=== PATIENT | male | born 1935 | race Caucasian/White ===

== ENCOUNTER 2021-06-28 18:16 | Inpatient (IN) | payer MEDICARE, BC ==
[~2021-06-28] VITALS: Ht 180.3 cm; Wt 101.6 kg
[2021-06-28] MEDS ORDERED: FURO20TA90 (18:46)
[2021-06-28] MEDS ORDERED: HYDROCHLOROTHIAZIDE (18:46)
[2021-06-28] MEDS ORDERED: METOPROLOL (18:46)
--- NOTE | 2021-06-28 19:35 | NUR ---
Pt placed into room 3, currently bradycardic at 45bpm. Will continue to monitor pt
[2021-06-28 19:40] LABS: HEMATOCRIT 51.2 % (36.7-47.1); MEAN CORPUSCULAR HEMOGLOBIN 28.9 uug (23.8-33.4); MEAN CORPUSCULAR VOLUME 87.3 fL (73.0-96.2); PLATELET COUNT (AUTO) 151 K/uL (152-348)
--- NOTE | 2021-06-28 19:44 | NUR ---
EKG COMPLETED, HANDED TO DR. HARTMANN
[2021-06-28 19:48] LABS: CARBON DIOXIDE 30 mmol/L (21-32); CHLORIDE 100 mmol/L (98-107); CREATININE 1.6 mg/dL (0.6-1.3); GLUCOSE 136 mg/dL (74-106); POTASSIUM 4.2 mmol/L (3.5-5.1); UREA NITROGEN, BLOOD 27 mg/dL (7-18)
--- NOTE | 2021-06-28 19:48 | NUR ---
PT TO CT
[2021-06-28 20:00] LABS: ALANINE AMINOTRANSFERASE 30 U/L (16-63); ALKALINE PHOSPHATASE 61 U/L (50-136); ASPARTATE AMINOTRANSFERASE 24 U/L (15-37); BILIRUBIN,TOTAL 1.7 mg/dL (0.2-1.0)
--- NOTE | 2021-06-28 20:48 | NUR ---
Called [facility], spoke to Queenie who will paged hospitalist to call us. Waiting for call back.
[2021-06-28] MEDS ORDERED: DEXTROSE 50% 50 ML DISP.SYRIN IV ONE (21:00)
[2021-06-28] MEDS ORDERED: DEXTROSE 50% 50 ML DISP.SYRIN ONE (21:08)
--- NOTE | 2021-06-28 21:11 | NUR ---
Pt blood glucose of 179
[2021-06-28 22:10] LABS: *BILIRUBIN,URIN NEGATIVE (NEGATIVE); *BLOOD, URINE 2+ (NEGATIVE); *CLARITY,URINE CLEAR (CLEAR); *COLOR,URINE YELLOW (YELLOW); *KETONES,URINE TRACE (NEGATIVE); *UROBILINOGEN,URINE 0.2 E.U./dl (NORMAL); LEUKOCYTE ESTERASE ,URINE NEGATIVE (NEGATIVE); NITRITE, URINE NEGATIVE (NEGATIVE); PH,URINE 5.5 (5.0-8.0); UGLUCOSE NEGATIVE (NEGATIVE)
[2021-06-28 22:34] LABS: BACTERIA,URINE NONE SEEN /HPF (NONE SEEN); SQUAMOUS EPITHELIAL CELL,UR NONE SEEN /HPF (NONE SEEN); WBC,URINE 0-3 /HPF (0-3)
--- NOTE | 2021-06-28 22:34 | NUR ---
Assisted with placement of transcutaneous IJ pacemaker, settings: rate of 80 ppm, ouypuy of 1 mA, sensitivity of 3 mV
--- NOTE | 2021-06-28 22:40 | NUR ---
Called [facility] spoke to Gokul who states he is unable to accept patient due to capacity
--- NOTE | 2021-06-28 22:58 | NUR ---
[facility] with no beds available.
--- NOTE | 2021-06-28 23:09 | NUR ---
Dr Painting spoke Dr Sinha for cardioloy who accepted patient.
[2021-06-28] MEDS ORDERED: CEFTRIAXONE 1 G in IV DEXTROSE 5% 50 ML IV ONE (23:30)
[2021-06-28] MEDS ORDERED: VANCOMYCIN IV 1,000 MG in IV DEXTROSE 5% 250 ML IV ONE (23:45)
[2021-06-28] MEDS ORDERED: CEFTRIAXONE /D5W 50ML IVPB **ER PYXIS IV ONE (23:54)
[2021-06-29] VITALS (19 sets, daily range): BP systolic 121–166; BP diastolic 32–108
--- NOTE | 2021-06-29 00:16 | NUR ---
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
[2021-06-29] MEDS ORDERED: VANCOMYCIN IV 200 ML ONE (00:20)
[2021-06-29] MEDS ORDERED: IV NORMAL SALINE 500 ML BAG IV ONE (00:45)
--- NOTE | 2021-06-29 00:49 | NUR ---
Dr Painting spoke with Dr Real who accepted patient to CCU.
[2021-06-29] MEDS ORDERED: ONDANSETRON 4 MG/2 ML VIAL IV PRN (01:15)
[2021-06-29] MEDS ORDERED: MAGNESIUM HYDROXIDE 30 ML LIQUID UDC PO PRN (01:15)
[2021-06-29] MEDS ORDERED: Z GUARD REMEDY PASTE 57 GM TUBE TOP PRN (01:15)
--- NOTE | 2021-06-29 04:15 | NUR ---
reeived patient and report from charmaine , patient is awake orient x [address] confusion [address] and time , oriented to name and , room air , transvenous pacer right internal jugular , rate 100 , output of 1, sensitivity to of 3 , incontinent , no distress , no fever . hr 91 , bp of 125/97 , 97 % , temp of 98. 4 , rr 17
--- NOTE | 2021-06-29 04:15 | NUR ---
received patient with just glasses and pant
[2021-06-29] MEDS: IV D5 1/2 NS 1000 ML 1,000 ML IV PRN ×2 (04:28→07:14)
--- NOTE | 2021-06-29 04:30 | NUR ---
16 fr lawson inserted with one attempt, draining orange red urine
--- NOTE | 2021-06-29 06:44 | NUR ---
patient pulled his iv , pressure applied , awake , able to follow very simple command but with intermittent confusion , on room air , external pacer same settings intact with sutures , lawson draining with reddish orange output
--- NOTE | 2021-06-29 07:17 | NUR ---
dr olson is at bedside , talking to the patient , updates given
[2021-06-29] MEDS: PANTOPRAZOLE SODIUM 40 MG VIAL IV SCH (09:14)
--- NOTE | 2021-06-29 10:22 | NUR ---
Late entry: Notified by shoe caser that they were trying to find a higher level of care. Dr. Sinha contacted to see if that was still his plan. Dr. Sinha stated to that pacemaker will be done in our OR by Dr. Mullins in . NPO orders removed.
[2021-06-29] MEDS: VANCOMYCIN IV 1,500 MG in IV DEXTROSE 5% 500 ML IV SCH ×2 (15:00→17:00)
[2021-06-29] MEDS ORDERED: HYDR25TA4 PO (16:32)
[2021-06-29] MEDS ORDERED: FURO-152 PO (16:32)
[2021-06-29] MEDS ORDERED: ATEN50TA PO (16:33)
[2021-06-29] MEDS ORDERED: METO50TA16 PO (16:38)
--- NOTE | 2021-06-29 19:05 | NUR ---
Received patient in bed alert but a little confused. Patient is currently on transvenous pacing output 10, sensitivity 3, capturing nicely at a rate of 71. BP stable. Patient on room air SAT 96%, no SOB or signs of distress. Patient educated that he is not to make any large movements and he is to remain calm and still, patient needs reinforcing throughout the night. Family at bedside, informed of pacemaker implantation procedure tomorrow morning, family understands procedure and risks and consent signed by the . Patient to be placed NPO after midnight for procedure in the AM.
[2021-06-29] MEDS ORDERED: CEFTRIAXONE 1 G in IV DEXTROSE 5% 50 ML IV SCH (21:00)
[2021-06-30] VITALS (21 sets, daily range): BP systolic 72–170; BP diastolic 35–97
[2021-06-30] MEDS: IV D5 1/2 NS 1000 ML 1,000 ML IV PRN ×2 (02:56→21:46)
[2021-06-30 06:01] LABS: HEMATOCRIT 47.9 % (36.7-47.1); MEAN CORPUSCULAR HEMOGLOBIN 28.8 uug (23.8-33.4); MEAN CORPUSCULAR VOLUME 86.6 fL (73.0-96.2); PLATELET COUNT (AUTO) 123 K/uL (152-348)
[2021-06-30 06:02] LABS: CREATININE 1.2 mg/dL (0.6-1.3); MAGNESIUM 1.5 mg/dL (1.8-2.4); PHOSPHOROUS 3.1 mg/dL (2.5-4.9); POTASSIUM 3.3 mmol/L (3.5-5.1)
[2021-06-30 06:13] LABS: THYROID STIMULATING HORMONE 1.238 mIU/mL (0.358-3.740)
[2021-06-30] MEDS ORDERED: LIDOCAINE HCL 2% 20 ML VIAL ONE (06:39)
--- NOTE | 2021-06-30 06:40 | NUR ---
Patient taken down to OR, Dr. Kumar in the unit with surgical team. Report given. Patient remained stable throughout the night, Pacer capturing well, no need to increase output. BP stable, No SOB or signs of distress.
[2021-06-30] MEDS ORDERED: BUPIVACAINE PF 0.5% 30 ML VIAL ONE (06:46)
[2021-06-30] MEDS ORDERED: IOPAMIDOL 15 ML VIAL IT ONE (06:47)
[2021-06-30] MEDS ORDERED: CEFAZOLIN 1 G VIAL IM ONE (09:13)
[2021-06-30] MEDS ORDERED: LIDOCAINE-MPF 2% 5 ML VIAL IJ ONE (09:13)
[2021-06-30] MEDS ORDERED: PROPOFOL 200 MG/20 ML BOTTLE IV ONE (09:13)
[2021-06-30] MEDS ORDERED: POTASSIUM CHLORIDE 20 MEQ TAB.PRT.SR PO ONE (10:30)
--- NOTE | 2021-06-30 11:01 | NUR ---
WOUND CARE CONSULT: PT SEEN FOR DRY SCAB ON LEFT LOWER LEG, PRESENT ON ADMISSION. NO ERYTHEMA, DRAINAGE OR TENDERNESS NOTED. THERE IS SCARRING TO RT LOWER LEG AND DRY SCAB TO LEFT ANTERIOR THIGH WELL. PT DENIES NEED FOR FULL SKIN ASSESSMENT OF GROIN AND BUTTOCKS AT THIS TIME. PT JUST BACK FROM PROCEDURE. RECOMMENDATIONS MADE FOR SKIN PROTECTION. DISCUSSED WITH NURSING STAFF. PT AT BEDSIDE. MD IN AGREEMENT WITH PLAN OF CARE.
[2021-06-30] MEDS: PANTOPRAZOLE SODIUM 40 MG VIAL IV SCH (11:17)
[2021-06-30] MEDS: MAGNESIUM SULFATE/D5W 100 ML IV SCH ×2 (11:18→12:50)
[2021-06-30] MEDS: ACETAMINOPHEN 325 MG TABLET PO PRN (13:17)
[2021-06-30] MEDS ORDERED: POLYVINYL ALCOHOL OPHT DROPS 15 ML BOTTLE EACHEYE PRN ×2 (13:45→14:15)
[2021-06-30] MEDS ORDERED: ALBU8.5H8 INH (15:18)
[2021-06-30] MEDS: [UNRECOGNIZED DRUG - OTHER] INH SCH (16:00)
[2021-06-30] MEDS: ALBUTEROL INH SCH (16:00)
[2021-06-30] MEDS: CLOTRIMAZOLE 1% CREAM 30 GM TUBE TOP SCH ×2 (17:00→18:00)
--- NOTE | 2021-06-30 19:10 | NUR ---
received patient sleeping soundly , arousable to light touch and name on room air , d51/2 ns at 75 ml / hr , lawson with orange red color , pacer incsion on left chest , dressing intact . , no fever , HR 69
--- NOTE | 2021-06-30 19:10 | NUR ---
old transcutaneous pacer right jugular intact ,
[2021-07-01] VITALS (23 sets, daily range): BP systolic 123–162; BP diastolic 61–105
[2021-07-01 04:28] LABS: HEMATOCRIT 40.8 % (36.7-47.1); MEAN CORPUSCULAR HEMOGLOBIN 28.4 uug (23.8-33.4); MEAN CORPUSCULAR VOLUME 86.5 fL (73.0-96.2); PLATELET COUNT (AUTO) 112 K/uL (152-348)
[2021-07-01 04:50] LABS: CARBON DIOXIDE 29 mmol/L (21-32); CHLORIDE 103 mmol/L (98-107); CREATININE 1.4 mg/dL (0.6-1.3); GLUCOSE 118 mg/dL (74-106); POTASSIUM 3.6 mmol/L (3.5-5.1); UREA NITROGEN, BLOOD 19 mg/dL (7-18)
[2021-07-01] MEDS: PANTOPRAZOLE SODIUM 40 MG TABLET.DR PO SCH (06:36)
--- NOTE | 2021-07-01 07:15 | NUR ---
Received patient in bed, no distress noted. Alert and oriented x2-3 forgetful. Patient is on room air, bed in low position, side rails upx2.
--- NOTE | 2021-07-01 08:13 | NUR ---
Late entry: Discussed restarting of home medications and primarily lasix today. Patient is edematous and urine output is low. Dr. Sinha to follow up on rounding.
--- NOTE | 2021-07-01 08:20 | NUR ---
Dr. Kumar contacted this proposal lead writer to inform that it is okay to remove the dressing from new pacemaker site, open to air.
[2021-07-01] MEDS: [UNRECOGNIZED DRUG - OTHER] INH SCH (09:28)
[2021-07-01] MEDS: CLOTRIMAZOLE 1% CREAM 30 GM TUBE TOP SCH ×2 (09:28→17:00)
[2021-07-01] MEDS: ALBUTEROL INH SCH (09:28)
[2021-07-01] MEDS ORDERED: FUROSEMIDE 40 MG/4 ML VIAL IV ONE (09:45)
[2021-07-01] MEDS ORDERED: POTASSIUM CHLORIDE 20 MEQ POWDER PACKET PO ONE (11:00)
[2021-07-01] MEDS: METOPROLOL TARTRATE 25 MG TABLET PO SCH ×2 (11:10→21:27)
[2021-07-01] MEDS: FUROSEMIDE 40 MG/4 ML VIAL IV SCH (21:26)
[2021-07-02] VITALS (24 sets, daily range): BP systolic 115–168; BP diastolic 63–119
[2021-07-02 06:39] LABS: HEMATOCRIT 43.5 % (36.7-47.1); MEAN CORPUSCULAR HEMOGLOBIN 28.8 uug (23.8-33.4); MEAN CORPUSCULAR VOLUME 87.3 fL (73.0-96.2); PLATELET COUNT (AUTO) 125 K/uL (152-348)
[2021-07-02 06:53] LABS: CREATININE 1.2 mg/dL (0.6-1.3); PHOSPHOROUS 3.4 mg/dL (2.5-4.9); POTASSIUM 3.6 mmol/L (3.5-5.1)
[2021-07-02] MEDS ORDERED: POTASSIUM CHLORIDE 20 MEQ POWDER PACKET GT ONE (08:00)
[2021-07-02] MEDS: FUROSEMIDE 40 MG/4 ML VIAL IV SCH ×2 (08:06→21:35)
[2021-07-02] MEDS: METOPROLOL TARTRATE 25 MG TABLET PO SCH ×2 (08:06→21:36)
[2021-07-02] MEDS: PANTOPRAZOLE SODIUM 40 MG TABLET.DR PO SCH (08:06)
[2021-07-02] MEDS: [UNRECOGNIZED DRUG - OTHER] INH SCH (08:07)
[2021-07-02] MEDS: ALBUTEROL INH SCH (08:07)
[2021-07-02] MEDS: ACETAMINOPHEN 325 MG TABLET PO PRN (08:26)
[2021-07-02] MEDS: HYDROCODONE/APAP 5-325MG TABLET PO PRN (08:27)
[2021-07-02] MEDS: CLOTRIMAZOLE 1% CREAM 30 GM TUBE TOP SCH ×2 (09:39→18:37)
[2021-07-02] MEDS: APIXABAN 5 MG TABLET PO SCH ×2 (11:59→21:36)
[2021-07-02] MEDS: LOSARTAN POTASSIUM 50 MG TABLET PO SCH (11:59)
--- NOTE | 2021-07-02 12:30 | NUR ---
Patient and discussed plan of care and continued hospitalization. Patients prefers acute rehab.
[2021-07-02] MEDS: ENSURE ENLIVE (VAN) 240 ML LIQUID PO SCH (17:00)
--- NOTE | 2021-07-02 19:23 | NUR ---
Report given to shift commander nurse, patient in bed asleep, no distress noted at this time, lawson intact, bed in low position, side rails upx2.
[2021-07-03 00:01] VITALS: BP 159/110
[2021-07-03 04:00] VITALS: BP 143/81
[2021-07-03] MEDS: HYDROCODONE/APAP 5-325MG TABLET PO PRN (04:24)
[2021-07-03 05:06] LABS: HEMATOCRIT 43.8 % (36.7-47.1); MEAN CORPUSCULAR HEMOGLOBIN 28.3 uug (23.8-33.4); MEAN CORPUSCULAR VOLUME 86.6 fL (73.0-96.2); PLATELET COUNT (AUTO) 148 K/uL (152-348)
[2021-07-03 05:14] LABS: CARBON DIOXIDE 32 mmol/L (21-32); CHLORIDE 99 mmol/L (98-107); CREATININE 1.5 mg/dL (0.6-1.3); GLUCOSE 125 mg/dL (74-106); PHOSPHOROUS 3.5 mg/dL (2.5-4.9); POTASSIUM 3.9 mmol/L (3.5-5.1); UREA NITROGEN, BLOOD 26 mg/dL (7-18)
[2021-07-03] MEDS: PANTOPRAZOLE SODIUM 40 MG TABLET.DR PO SCH (06:26)
--- NOTE | 2021-07-03 09:30 | NUR ---
RECEIVED PATIENT BY BED TO ROOM 319 FROM CCU PLACED INTO BED FIXED AND MADE COMFORTABLE PATIENT IS ALERT AND VERBALLY RESPONSIVE DENIES PAIN OR DISCOMFORTS BOYD THIS TIME ON TELE SR WITH HEART BLOCK ORIENTED TO ROOM AND FLOOR PROTOCOL CALL LIGHTS AND PERSONAL BELONGINGS ARE WITHIN EASY REACH WILL CONTINUE TO OBSERVE.
[2021-07-03] MEDS: FUROSEMIDE 20 MG TABLET PO SCH (10:04)
[2021-07-03] MEDS: METOPROLOL TARTRATE 25 MG TABLET PO SCH ×2 (10:04→20:40)
[2021-07-03] MEDS: LOSARTAN POTASSIUM 50 MG TABLET PO SCH (10:05)
[2021-07-03] MEDS: ENSURE ENLIVE (VAN) 240 ML LIQUID PO SCH ×2 (10:10→18:34)
[2021-07-03 12:00] VITALS: BP 103/70
--- NOTE | 2021-07-03 12:04 | NUR ---
patient seen and examined by dr davidson with new orders and noted
[2021-07-03 16:00] VITALS: BP 140/69
[2021-07-03] MEDS: CLOTRIMAZOLE 1% CREAM 30 GM TUBE TOP SCH (17:00)
--- NOTE | 2021-07-03 17:00 | NUR ---
PATIENT SEEN AND EXAMINED BY JAYSON SWANN SMASH PIECER WITH ORDERS FOR ULTRA SOUND GUIDED THORACENTESIS AND BODY FLUID ANALYSIS
[2021-07-03 20:30] VITALS: BP 132/70
[2021-07-04] VITALS: BP 159/70
[2021-07-04 04:20] VITALS: BP 118/82
--- NOTE | 2021-07-04 05:22 | NUR ---
Pt slept well during the night. No issues noted. Pt forgetful at times, reorientation provided. F/C intact and patent. AM care done, no new skin breakdown noted. Pt able to turn and reposition independently in bed. Plan for possible US guided thoracentesis. All needs attended. Safety precautions maintained. Call light within reach. Continue plan of care.
[2021-07-04 06:34] LABS: HEMATOCRIT 42.5 % (36.7-47.1); MEAN CORPUSCULAR VOLUME 86.7 fL (73.0-96.2); PLATELET COUNT (AUTO) 164 K/uL (152-348)
[2021-07-04 06:49] LABS: CARBON DIOXIDE 31 mmol/L (21-32); CHLORIDE 100 mmol/L (98-107); CREATININE 1.4 mg/dL (0.6-1.3); GLUCOSE 107 mg/dL (74-106); POTASSIUM 3.9 mmol/L (3.5-5.1); UREA NITROGEN, BLOOD 32 mg/dL (7-18)
[2021-07-04] MEDS: PANTOPRAZOLE SODIUM 40 MG TABLET.DR PO SCH (07:00)
--- NOTE | 2021-07-04 08:00 | NUR ---
awake, alert/oriented x3, denies of pain, tele Vpaced , explained plan fo care- verbalized understanding, needs attended, safety measures maintained, call light within reach, lawson cath draining light yellow urine
[2021-07-04] MEDS: ENSURE ENLIVE (VAN) 240 ML LIQUID PO SCH ×2 (09:23→17:49)
[2021-07-04] MEDS: FUROSEMIDE 20 MG TABLET PO SCH (09:25)
[2021-07-04] MEDS: ALBUTEROL INH SCH (09:26)
[2021-07-04] MEDS: [UNRECOGNIZED DRUG - OTHER] INH SCH (09:26)
[2021-07-04] MEDS: CLOTRIMAZOLE 1% CREAM 30 GM TUBE TOP SCH ×2 (09:27→17:50)
[2021-07-04] MEDS: METOPROLOL TARTRATE 25 MG TABLET PO SCH (09:27)
[2021-07-04] MEDS: LOSARTAN POTASSIUM 50 MG TABLET PO SCH (09:28)
--- NOTE | 2021-07-04 10:00 | NUR ---
us guided thoracentesis will be done at 1400- pt informed
[2021-07-04 11:58] VITALS: BP 147/67
--- NOTE | 2021-07-04 15:00 | NUR ---
right thoracentesis done at bedside- obtained 750ml bloody pleural fluuid- tolerated well- will continue to monitor- cxr post thoracentesis obtained- no pneumothorax
[2021-07-04] MEDS: ACETAMINOPHEN 325 MG TABLET PO PRN (15:49)
[2021-07-04 16:00] VITALS: BP 112/67
--- NOTE | 2021-07-04 18:47 | NUR ---
pt d/cd as tele -to be admitted in ARU, pt in no distress, all needs attended and met
[2021-07-04] MEDS ORDERED: FURO-152 PO ×2 (21:50)
[2021-07-04] MEDS ORDERED: LACT-51 PO (21:50)
[2021-07-04] MEDS ORDERED: POLY15DR27 EACHEYE (21:50)
[2021-07-04] MEDS ORDERED: CLOT12CR TP (21:50)
[2021-07-04] MEDS ORDERED: ACET-2154 PO (21:50)
[2021-07-04] MEDS ORDERED: MAGN400O6 PO (21:50)
[2021-07-04] MEDS ORDERED: HYDR-3972 PO (21:50)
[2021-07-04] MEDS ORDERED: APIX5TAB PO (21:50)
[2021-07-04] MEDS ORDERED: ONDA4VIA23 IJ (21:50)
[2021-07-04] MEDS ORDERED: PANT40TA2 PO (21:50)
[2021-07-04] MEDS ORDERED: LOSA50TA39 PO (21:50)
== END 2021-07-04 19:15 | DRG 242 ==
LOC: ER 18:16 → CCU 06-29 02:00 → TELE3 07-03 09:00
PROVIDERS: ADMIT Student in an Organized Health Care Education/Training Program; ATTEND Nurse Practitioner Acute Care
DX: I44.2 Atrioventricular block, complete (principal); N17.0 Acute kidney failure with tubular necrosis; I50.31 Acute diastolic (congestive) heart failure; G91.2 (Idiopathic) normal pressure hydrocephalus; I13.0 Hypertensive heart and chronic kidney disease with heart failure and stage 1 through stage 4 chronic kidney disease, or unspecified chronic kidney disease; R00.1 Bradycardia, unspecified; I48.0 Paroxysmal atrial fibrillation; E11.22 Type 2 diabetes mellitus with diabetic chronic kidney disease; N18.9 Chronic kidney disease, unspecified; E66.9 Obesity, unspecified; I25.10 Atherosclerotic heart disease of native coronary artery without angina pectoris; T50.1X5A Adverse effect of loop [high-ceiling] diuretics, initial encounter; T50.2X5A Adverse effect of carbonic-anhydrase inhibitors, benzothiadiazides and other diuretics, initial encounter; Y92.009 Unspecified place in unspecified non-institutional (private) residence as the place of occurrence of the external cause; R09.02 Hypoxemia; Z87.442 Personal history of urinary calculi; Z91.81 History of falling; M62.81 Muscle weakness (generalized); R09.82 Postnasal drip; Z91.048 Other nonmedicinal substance allergy status; I35.0 Nonrheumatic aortic (valve) stenosis
CPT/HCPCS: 32555; 36415; 70030-TC; 70450; 71045; 71250; 76604; 82785; 83615; 83735; 83986; 84100; 84155; 84443; 85025; 85730; 86140; 87040; 87070; 87205; 88108-TC; 93005; 93307; 97161; A4649; A4663; C1898; C9113; G0378; J0690; J0696; J1940; J3370; J3475; J3490; J7040; J7060; Q9967

== ENCOUNTER 2021-07-04 20:18 | Inpatient (IN) | payer MEDICARE, BC ==
[~2021-07-04] VITALS: Ht 177.8 cm; Wt 99.8 kg
[~2021-07-04 20:18] MED LIST: ALBU8.5H8 INH; FURO-152 PO; HYDR25TA4 PO; METO50TA16 PO
[2021-07-04] MEDS ORDERED: Z GUARD REMEDY PASTE 57 GM TUBE TOP PRN (20:30)
[2021-07-04 20:35] VITALS: BP 122/62
[2021-07-04] MEDS ORDERED: POLY15DR27 EACHEYE (21:50)
[2021-07-04] MEDS ORDERED: ONDA4VIA23 IJ (21:50)
[2021-07-04] MEDS ORDERED: CLOT12CR TP (21:50)
[2021-07-04] MEDS ORDERED: MAGN400O6 PO (21:50)
[2021-07-04] MEDS ORDERED: APIX5TAB PO (21:50)
[2021-07-04] MEDS ORDERED: LOSA50TA39 PO (21:50)
[2021-07-04] MEDS ORDERED: FURO-152 PO ×2 (21:50)
[2021-07-04] MEDS ORDERED: ACET-2154 PO (21:50)
[2021-07-04] MEDS ORDERED: LACT-51 PO (21:50)
[2021-07-04] MEDS ORDERED: HYDR-3972 PO (21:50)
[2021-07-04] MEDS ORDERED: PANT40TA2 PO (21:50)
[2021-07-05 04:19] VITALS: BP 142/64
--- NOTE | 2021-07-05 05:06 | NUR ---
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 AAOX2-3 forgetful at times. Patient admitted to ARU. Lungs diminished. VSS. Pérez catheter intact draining yellow urine. I & O monitor. Kept comfortable. Left chest wall incision JTE. Hx of Afib, HTN, pleural effusion. Denies any pain nor any discomfort. Will monitor patient. No acute distress noted.
[2021-07-05 08:00] VITALS: BP 135/72
[2021-07-05] MEDS ORDERED: ONDANSETRON 4 MG/2 ML VIAL IV PRN (09:15)
[2021-07-05] MEDS ORDERED: HYDROCODONE/APAP 5-325MG TABLET PO PRN (09:15)
[2021-07-05] MEDS ORDERED: MAGNESIUM HYDROXIDE 30 ML LIQUID UDC PO PRN (09:15)
[2021-07-05] MEDS ORDERED: POLYVINYL ALCOHOL OPHT DROPS 15 ML BOTTLE EACHEYE PRN (09:15)
[2021-07-05] MEDS ORDERED: ACETAMINOPHEN 325 MG TABLET PO PRN (09:15)
[2021-07-05] MEDS: LOSARTAN POTASSIUM 50 MG TABLET PO SCH (11:40)
[2021-07-05] MEDS: PANTOPRAZOLE SODIUM 40 MG TABLET.DR PO SCH (11:40)
[2021-07-05] MEDS: FUROSEMIDE 20 MG TABLET PO SCH (11:41)
[2021-07-05] MEDS: APIXABAN 5 MG TABLET PO SCH ×2 (11:45→21:22)
[2021-07-05] MEDS: METOPROLOL SUCCINATE XL 50 MG TAB.SR.24H PO SCH (11:54)
[2021-07-05] MEDS: CLOTRIMAZOLE 1% CREAM 30 GM TUBE TP SCH ×2 (11:55→18:21)
[2021-07-05] MEDS: ENSURE ENLIVE (VAN) 240 ML LIQUID PO SCH ×2 (11:55→18:21)
--- NOTE | 2021-07-05 13:56 | NUR ---
INTERDISCIPLINARY TEAM CONFERENCE
[2021-07-05 16:02] VITALS: BP 146/64
[2021-07-05 20:00] VITALS: BP 141/69
[2021-07-06 04:00] VITALS: BP 140/80
[2021-07-06] MEDS: PANTOPRAZOLE SODIUM 40 MG TABLET.DR PO SCH (06:20)
[2021-07-06 06:30] LABS: HEMATOCRIT 42.5 % (36.7-47.1); MEAN CORPUSCULAR HEMOGLOBIN 28.6 uug (23.8-33.4); MEAN CORPUSCULAR VOLUME 86.4 fL (73.0-96.2); PLATELET COUNT (AUTO) 160 K/uL (152-348)
[2021-07-06 06:43] LABS: CARBON DIOXIDE 30 mmol/L (21-32); CHLORIDE 101 mmol/L (98-107); CREATININE 1.4 mg/dL (0.6-1.3); GLUCOSE 98 mg/dL (74-106); MAGNESIUM 2.2 mg/dL (1.8-2.4); PHOSPHOROUS 3.3 mg/dL (2.5-4.9); POTASSIUM 3.9 mmol/L (3.5-5.1); UREA NITROGEN, BLOOD 28 mg/dL (7-18)
--- NOTE | 2021-07-06 06:47 | NUR ---
Shift End Report: VS stable. Slept well. No significant event reported all night. Continue care as planne
[2021-07-06 07:47] VITALS: BP 156/83
[2021-07-06] MEDS: ENSURE ENLIVE (VAN) 240 ML LIQUID PO SCH ×2 (08:20→16:24)
[2021-07-06] MEDS: METOPROLOL SUCCINATE XL 50 MG TAB.SR.24H PO SCH (08:33)
[2021-07-06] MEDS: LOSARTAN POTASSIUM 50 MG TABLET PO SCH (08:34)
[2021-07-06] MEDS: FUROSEMIDE 20 MG TABLET PO SCH (08:34)
[2021-07-06] MEDS: APIXABAN 5 MG TABLET PO SCH (08:35)
[2021-07-06] MEDS: CLOTRIMAZOLE 1% CREAM 30 GM TUBE TP SCH ×2 (08:36→16:24)
[2021-07-06 15:43] VITALS: BP 142/70
--- NOTE | 2021-07-06 16:36 | NUR ---
REPORTED TO DR. ARCINIEGA, RN OFFICE, PATIENT HAS BLOODY URINE OUTPUT. ORDER TO HOLD ELIQUIS TONIGHT DOSE.
--- NOTE | 2021-07-06 18:41 | NUR ---
Per Dr Ramires, patient is for Spinal tap on Saturday/Saturday. Informed Dr Colby, order to kay Moya. Per Dr Colby, he will coordinate with the radiology and PT tomorrow. Kept patient patient comfortable during the shift. all needs attended. denies pain or discomfort. Kept call light within reach. safety measure maintained at all times. will continue to monitor.
[2021-07-06 21:00] VITALS: BP 138/60
[2021-07-07 04:00] VITALS: BP 157/60
[2021-07-07] MEDS: PANTOPRAZOLE SODIUM 40 MG TABLET.DR PO SCH (06:10)
--- NOTE | 2021-07-07 06:34 | NUR ---
The patient remained comfortable and no distress identified during the shift. denies pain or discomfort. Noted with clear-charanjit urine output. Minimal bloody color at the end of the shift identified. kept call light within reach. all due meds given as ordered. safety measures maintained. frequent checks done. all needs attended. will endorse to the next shift for continuity of care.
[2021-07-07 08:23] VITALS: BP 144/68
[2021-07-07] MEDS: METOPROLOL SUCCINATE XL 50 MG TAB.SR.24H PO SCH (10:25)
[2021-07-07] MEDS: ENSURE ENLIVE (VAN) 240 ML LIQUID PO SCH ×2 (10:25→17:06)
[2021-07-07] MEDS: FUROSEMIDE 20 MG TABLET PO SCH (10:25)
[2021-07-07] MEDS: LOSARTAN POTASSIUM 50 MG TABLET PO SCH (10:25)
[2021-07-07] MEDS: CLOTRIMAZOLE 1% CREAM 30 GM TUBE TP SCH ×2 (10:26→17:06)
--- NOTE | 2021-07-07 13:59 | NUR ---
INDIVIDUALIZED PLAN OF CARE
[2021-07-07 20:36] VITALS: BP 134/58
[2021-07-08 05:11] VITALS: BP 133/63
[2021-07-08] MEDS: PANTOPRAZOLE SODIUM 40 MG TABLET.DR PO SCH (06:10)
[2021-07-08 07:45] VITALS: BP 155/82
[2021-07-08] MEDS: CLOTRIMAZOLE 1% CREAM 30 GM TUBE TP SCH ×2 (09:22→18:26)
[2021-07-08] MEDS: METOPROLOL SUCCINATE XL 50 MG TAB.SR.24H PO SCH (09:23)
[2021-07-08] MEDS: FUROSEMIDE 20 MG TABLET PO SCH (09:23)
[2021-07-08] MEDS: LOSARTAN POTASSIUM 50 MG TABLET PO SCH (09:23)
[2021-07-08] MEDS: ENSURE ENLIVE (VAN) 240 ML LIQUID PO SCH ×2 (09:24→18:26)
[2021-07-08 15:11] VITALS: BP 144/74
[2021-07-08 20:00] VITALS: BP 137/74
--- NOTE | 2021-07-08 21:52 | NUR ---
Received pt awake on bed with no respiratory distress noted. He is alert and oriented x4, able to make needs known. Denies pain and discomfort at this time. FC patent and intact, draining well with yellowish urine. Assisted in turning and repositioning. All needs attended. Call light placed within reach. Will continue to monitor.
[2021-07-09 04:30] VITALS: BP 127/88
[2021-07-09] MEDS: PANTOPRAZOLE SODIUM 40 MG TABLET.DR PO SCH (06:01)
--- NOTE | 2021-07-09 06:40 | NUR ---
Pt slept throughout the night. Denies pain and discomfort. Pérez cath bag noted with leaking, bag changed. FC also flushed with NS, patent and draining well with yellowish urine. All needs attended. Call light placed within reach. Frequent visual checks done.
[2021-07-09 07:30] VITALS: BP 152/71
[2021-07-09] MEDS: FUROSEMIDE 20 MG TABLET PO SCH (08:54)
[2021-07-09] MEDS: METOPROLOL SUCCINATE XL 50 MG TAB.SR.24H PO SCH (08:54)
[2021-07-09] MEDS: ENSURE ENLIVE (VAN) 240 ML LIQUID PO SCH ×2 (08:54→17:44)
[2021-07-09] MEDS: LOSARTAN POTASSIUM 50 MG TABLET PO SCH (08:54)
[2021-07-09] MEDS: CLOTRIMAZOLE 1% CREAM 30 GM TUBE TP SCH ×2 (08:55→17:13)
--- NOTE | 2021-07-09 12:30 | NUR ---
Received patient in bed, alert and awake, cooperative upon assessment, denies of any pain. Pérez cath is d/c per Rashid Colby and will monitor within 6hours. All due meds given per MD gibbs. Call light placed within reach. at bedside.
[2021-07-09 16:00] VITALS: BP 120/66
--- NOTE | 2021-07-09 16:30 | NUR ---
Patient was able to urinate. Assisted patient to the bathroom and changed his adult diaper twice. No bladder distention noted.
[2021-07-09 20:19] VITALS: BP 149/79
--- NOTE | 2021-07-09 21:26 | NUR ---
Received pt sleeping comfortably in bed. Aroused easily to verbal stimuli. Alert and oriented x3. No acute distress noted. Denies pain/ discomfort. Safety measures maintained. Call light within reach. Will continue to monitor.
[2021-07-10 04:30] VITALS: BP 162/76
[2021-07-10] MEDS ORDERED: hydrALAZINE HCL 10 MG TABLET PO PRN (04:45)
--- NOTE | 2021-07-10 04:49 | NUR ---
Pt's BP this morning is 162/76, HR 78. No dizziness, SOB, or CP. No acute distress noted. Notified Dimas DNP with new order for hydralazine 10 mg PO Q4H PRN for SBP >160. Will carry out order, continue to monitor.
[2021-07-10] MEDS: PANTOPRAZOLE SODIUM 40 MG TABLET.DR PO SCH (06:21)
[2021-07-10 06:40] LABS: HEMATOCRIT 45.2 % (36.7-47.1); MEAN CORPUSCULAR HEMOGLOBIN 28.6 uug (23.8-33.4); MEAN CORPUSCULAR VOLUME 85.3 fL (73.0-96.2); PLATELET COUNT (AUTO) 219 K/uL (152-348)
[2021-07-10 06:41] LABS: CREATININE 1.1 mg/dL (0.6-1.3); MAGNESIUM 1.8 mg/dL (1.8-2.4); POTASSIUM 4.1 mmol/L (3.5-5.1)
[2021-07-10 08:00] VITALS: BP_SYST 117; BP_SYST 182; BP_DIAS 111; BP_DIAS 71
[2021-07-10] MEDS: METOPROLOL SUCCINATE XL 50 MG TAB.SR.24H PO SCH (08:20)
[2021-07-10] MEDS: FUROSEMIDE 20 MG TABLET PO SCH (08:20)
[2021-07-10] MEDS: LOSARTAN POTASSIUM 50 MG TABLET PO SCH (08:20)
[2021-07-10] MEDS: CLOTRIMAZOLE 1% CREAM 30 GM TUBE TP SCH ×2 (08:21→17:12)
--- NOTE | 2021-07-10 08:35 | NUR ---
Received patient awake, alert, not in any form of acute distress, on room air. Patient complained of lower abdominal pain and noted with elevated BP. Per patient he have not voided yet. Administered due medications and tolerated well. Patient seen by Rashid Colby APPRAISER LAND, update given to APPRAISER LAND and APPRAISER LAND ordered to do bladder scan which showed 435cc. APPRAISER LAND ordered to insert Pérez catheter.
[2021-07-10] MEDS: ENSURE ENLIVE (VAN) 240 ML LIQUID PO SCH ×2 (09:00→17:12)
[2021-07-10 09:30] VITALS: BP 117/71
--- NOTE | 2021-07-10 11:45 | NUR ---
Patient picked up for lumbar puncture via hospital bed. He denies any pain or discomfort. Vital signs stable.
--- NOTE | 2021-07-10 13:40 | NUR ---
Patient is back in the room S/P lumbar puncture. He is awake, alert, no complain of pain or discomfort, vital signs stable.
[2021-07-10 15:27] VITALS: BP 150/77
[2021-07-10 20:00] VITALS: BP 119/64
[2021-07-11 04:00] VITALS: BP 147/83
[2021-07-11] MEDS: PANTOPRAZOLE SODIUM 40 MG TABLET.DR PO SCH (06:21)
[2021-07-11] MEDS: LOSARTAN POTASSIUM 50 MG TABLET PO SCH (08:20)
[2021-07-11] MEDS: ENSURE ENLIVE (VAN) 240 ML LIQUID PO SCH ×2 (08:20→17:26)
[2021-07-11] MEDS: METOPROLOL SUCCINATE XL 50 MG TAB.SR.24H PO SCH (08:27)
[2021-07-11] MEDS: FUROSEMIDE 20 MG TABLET PO SCH (08:27)
[2021-07-11] MEDS: CLOTRIMAZOLE 1% CREAM 30 GM TUBE TP SCH ×2 (08:29→17:27)
[2021-07-11 09:00] VITALS: BP 163/93
[2021-07-11 10:30] VITALS: BP 112/55
[2021-07-11 16:08] VITALS: BP 140/80
[2021-07-11 20:06] VITALS: BP 135/60
[2021-07-11] MEDS: TAMSULOSIN HCL 0.4 MG CAP.SR.24H PO SCH (21:12)
[2021-07-12 04:22] VITALS: BP 122/64
[2021-07-12] MEDS: PANTOPRAZOLE SODIUM 40 MG TABLET.DR PO SCH (05:36)
[2021-07-12 07:46] VITALS: BP 145/77
[2021-07-12] MEDS: FUROSEMIDE 20 MG TABLET PO SCH (08:45)
[2021-07-12] MEDS: LOSARTAN POTASSIUM 50 MG TABLET PO SCH (08:46)
[2021-07-12] MEDS: ENSURE ENLIVE (VAN) 240 ML LIQUID PO SCH ×2 (08:47→16:54)
[2021-07-12] MEDS: CLOTRIMAZOLE 1% CREAM 30 GM TUBE TP SCH ×2 (08:47→16:55)
[2021-07-12] MEDS: METOPROLOL SUCCINATE XL 50 MG TAB.SR.24H PO SCH (08:47)
--- NOTE | 2021-07-12 14:39 | NUR ---
INTERDISCIPLINARY TEAM CONFERENCE
[2021-07-12 15:54] VITALS: BP 139/75
--- NOTE | 2021-07-12 18:26 | NUR ---
PATIENT REMAINED STABLE DURING THE SHIFT. ALL NEEDS ATTENDED. NO DISTRESS IDENTIFIED. SAFETY PRECAUTION MAINTAINED. WILL ENDORSE TO THE NEXT SHIFT FOR CONTINUITY OF CARE.
[2021-07-12 20:03] VITALS: BP 106/69
[2021-07-12] MEDS: TAMSULOSIN HCL 0.4 MG CAP.SR.24H PO SCH (21:09)
[2021-07-13 04:45] VITALS: BP 128/73
[2021-07-13] MEDS: PANTOPRAZOLE SODIUM 40 MG TABLET.DR PO SCH (06:13)
[2021-07-13 07:59] LABS: HEMATOCRIT 43.5 % (36.7-47.1); MEAN CORPUSCULAR HEMOGLOBIN 28.9 uug (23.8-33.4); MEAN CORPUSCULAR VOLUME 86.4 fL (73.0-96.2); PLATELET COUNT (AUTO) 224 K/uL (152-348)
[2021-07-13 08:04] LABS: BILIRUBIN,TOTAL 0.5 mg/dL (0.2-1.0); CREATININE 0.9 mg/dL (0.6-1.3); MAGNESIUM 1.6 mg/dL (1.8-2.4); PHOSPHOROUS 3.1 mg/dL (2.5-4.9); POTASSIUM 4.1 mmol/L (3.5-5.1); TOTAL PROTEIN, SERUM 6.1 g/dL (6.4-8.2)
[2021-07-13] MEDS: FUROSEMIDE 20 MG TABLET PO SCH (08:31)
[2021-07-13] MEDS: ENSURE ENLIVE (VAN) 240 ML LIQUID PO SCH ×2 (08:31→17:10)
[2021-07-13] MEDS: LOSARTAN POTASSIUM 50 MG TABLET PO SCH (08:31)
[2021-07-13] MEDS: METOPROLOL SUCCINATE XL 50 MG TAB.SR.24H PO SCH (08:31)
[2021-07-13] MEDS: CLOTRIMAZOLE 1% CREAM 30 GM TUBE TP SCH ×2 (08:32→17:11)
[2021-07-13 08:37] VITALS: BP 128/65
[2021-07-13] MEDS ORDERED: MAGNESIUM OXIDE 400 MG TABLET PO ONE (10:15)
[2021-07-13 16:30] VITALS: BP 130/75
--- NOTE | 2021-07-13 18:20 | NUR ---
The patient remained stable during the shift. Assisted with all his needs. Kept call light within reach. All due meds given. No distress identified. Safety measures maintained. No pain identified. Will endorse to the next shift for continuity of care.
[2021-07-13 20:00] VITALS: BP 129/64
[2021-07-13] MEDS: TAMSULOSIN HCL 0.4 MG CAP.SR.24H PO SCH (20:10)
[2021-07-13] MEDS: ATORVASTATIN 10 MG TABLET PO SCH (21:04)
[2021-07-14 04:00] VITALS: BP 137/67
--- NOTE | 2021-07-14 04:44 | NUR ---
AAOx4. Remained stable this shift. VSS. All needs attended. All due meds given without difficulty. No acute distress note d. Pérez catheter intact draining yellow urine. BM noted this shift. Denies any pain nor any discomfort. Fall precautions maintained. Kept comfortable. Will monitor patient. Slept well most of the shift.
[2021-07-14] MEDS: PANTOPRAZOLE SODIUM 40 MG TABLET.DR PO SCH (06:16)
[2021-07-14 07:39] VITALS: BP 129/65
[2021-07-14] MEDS: ENSURE ENLIVE (VAN) 240 ML LIQUID PO SCH ×2 (08:48→16:30)
[2021-07-14] MEDS: CLOTRIMAZOLE 1% CREAM 30 GM TUBE TP SCH ×2 (08:49→16:30)
[2021-07-14] MEDS: METOPROLOL SUCCINATE XL 50 MG TAB.SR.24H PO SCH (08:49)
[2021-07-14] MEDS: LOSARTAN POTASSIUM 50 MG TABLET PO SCH (08:49)
[2021-07-14] MEDS: FUROSEMIDE 20 MG TABLET PO SCH (08:49)
[2021-07-14] MEDS ORDERED: FUROSEMIDE 20 MG TABLET PO ONE (10:00)
[2021-07-14 15:16] VITALS: BP 115/65
--- NOTE | 2021-07-14 16:00 | NUR ---
patient's reported that patient had a moment of slurred speech. Upon assessment, patient is able to speak clearly and able to move extremities without residual. Charge nurse also informed and made an assessment. Called Dr. Pisano to report, he talked to the and ordered labs for the patient. Patient denies pain, no chest pain, no respiratory distress identified. He is lying comfortably in his bed, will continue to monitor.
[2021-07-14 16:28] LABS: HEMATOCRIT 45.7 % (36.7-47.1); MEAN CORPUSCULAR HEMOGLOBIN 28.7 uug (23.8-33.4); MEAN CORPUSCULAR VOLUME 86.9 fL (73.0-96.2); PLATELET COUNT (AUTO) 238 K/uL (152-348)
[2021-07-14 17:45] LABS: CREATININE 1.1 mg/dL (0.6-1.3); POTASSIUM 4.1 mmol/L (3.5-5.1)
--- NOTE | 2021-07-14 17:58 | NUR ---
Clarified order with Dr Pisano, lab order is CBC/BMP. Informed Heather of lab. Will endorse patient to the next shift for continuity of care. Patient had no other concern at this time. NO pain noted, able to speak and verbalized needs.
--- NOTE | 2021-07-14 20:05 | NUR ---
NSG: Received pt awake lying on bed , alert and oriented x3 but forgetful. no respiratory distress noted.patient is able to make needs known. Denies pain and discomfort at this time. F/C patent and intact, draining yellowish urine. Assisted with adl's and repositioning. Call light within reach. Will continue to monitor.
[2021-07-14 20:26] VITALS: BP 109/62
[2021-07-14] MEDS: ATORVASTATIN 10 MG TABLET PO SCH (20:27)
[2021-07-14] MEDS: TAMSULOSIN HCL 0.4 MG CAP.SR.24H PO SCH (20:27)
[2021-07-15 04:32] VITALS: BP 131/81
--- NOTE | 2021-07-15 05:56 | NUR ---
NSG: Patient Remained stable throughout the shift. VSS. All needs attended. All due meds given without and tolerated well. No acute distress noted,denies pain or discomfort at this time. Pérez catheter patent and draining yellow urine. Fall precautions maintained. Kept comfortable. call light w/in reach.
[2021-07-15] MEDS: PANTOPRAZOLE SODIUM 40 MG TABLET.DR PO SCH (06:13)
[2021-07-15 08:18] VITALS: BP 145/85
[2021-07-15] MEDS: METOPROLOL SUCCINATE XL 50 MG TAB.SR.24H PO SCH (08:35)
[2021-07-15] MEDS: LOSARTAN POTASSIUM 50 MG TABLET PO SCH (08:35)
[2021-07-15] MEDS: FUROSEMIDE 20 MG TABLET PO SCH (08:35)
[2021-07-15] MEDS: ENSURE ENLIVE (VAN) 240 ML LIQUID PO SCH ×2 (08:35→17:23)
[2021-07-15] MEDS: CLOTRIMAZOLE 1% CREAM 30 GM TUBE TP SCH ×2 (08:36→17:24)
[2021-07-15 16:04] VITALS: BP 103/64
--- NOTE | 2021-07-15 19:30 | NUR ---
NSG: Received pt awake lying on bed , alert and oriented x3 forgetful. no respiratory distress noted.respiration eveb and unlabored. patient is able to make needs known. Denies pain and discomfort at this time. F/C patent and intact, draining yellowish urine. Assisted with adl's and repositioning. Call light within reach. Will continue to monitor.
[2021-07-15 20:33] VITALS: BP 127/72
[2021-07-15] MEDS: TAMSULOSIN HCL 0.4 MG CAP.SR.24H PO SCH (20:35)
[2021-07-15] MEDS: ATORVASTATIN 10 MG TABLET PO SCH (20:35)
[2021-07-16 04:56] VITALS: BP 143/86
[2021-07-16] MEDS: PANTOPRAZOLE SODIUM 40 MG TABLET.DR PO SCH (06:13)
--- NOTE | 2021-07-16 06:31 | NUR ---
NSG: Patient Remained stable throughout the shift. VSS. All due meds given without and tolerated well. No acute distress noted,denies pain or discomfort at this time. Pérez catheter patent and draining yellow urine. Fall precautions maintained. Kept comfortable. call light w/in reach.
--- NOTE | 2021-07-16 07:00 | NUR ---
PATIENT IS ALERT/ORIENTED, FC INTACT AND DRAINING WELL. DENIES PAIN, NO DISTRESS IDENTIFIED. WILL CONTINUE TO MONITOR.
[2021-07-16 07:31] VITALS: BP 148/80
[2021-07-16] MEDS: ENSURE ENLIVE (VAN) 240 ML LIQUID PO SCH ×2 (08:24→16:30)
[2021-07-16] MEDS: CLOTRIMAZOLE 1% CREAM 30 GM TUBE TP SCH ×2 (08:25→16:30)
[2021-07-16] MEDS: LOSARTAN POTASSIUM 50 MG TABLET PO SCH (08:25)
[2021-07-16] MEDS: METOPROLOL SUCCINATE XL 50 MG TAB.SR.24H PO SCH (08:25)
[2021-07-16] MEDS: FUROSEMIDE 20 MG TABLET PO SCH (08:25)
[2021-07-16 15:36] VITALS: BP 131/77
--- NOTE | 2021-07-16 18:22 | NUR ---
PATIENT REMAINED STABLE. NO DISTRESS IDENTIFIED DURING THE SHIFT. SAFETY MEASURES MAINTAINED. KEPT CALL LIGHT WITHIN REACH. ALL NEEDS ATTENDED. ALL DUE MEDS GIVEN. FREQUENT ROUNDING DONE. WILL ENDORSE TO THE NEXT SHIFT FOR CONTINUITY OF CARE.
[2021-07-16 20:22] VITALS: BP 114/71
[2021-07-16] MEDS: TAMSULOSIN HCL 0.4 MG CAP.SR.24H PO SCH (20:32)
[2021-07-16] MEDS: ATORVASTATIN 10 MG TABLET PO SCH (20:33)
[2021-07-17 04:35] VITALS: BP 141/76
--- NOTE | 2021-07-17 05:40 | NUR ---
Shift End Report: Slept good. No significant event reported all night. All needs attended and met. Continue current rehab plan of care. VS stable.
[2021-07-17] MEDS: PANTOPRAZOLE SODIUM 40 MG TABLET.DR PO SCH (06:07)
[2021-07-17 07:30] VITALS: BP 135/74
[2021-07-17] MEDS: ENSURE ENLIVE (VAN) 240 ML LIQUID PO SCH (08:00)
[2021-07-17] MEDS: FUROSEMIDE 20 MG TABLET PO SCH (09:43)
[2021-07-17] MEDS: LOSARTAN POTASSIUM 50 MG TABLET PO SCH (09:43)
[2021-07-17] MEDS: METOPROLOL SUCCINATE XL 50 MG TAB.SR.24H PO SCH (09:44)
[2021-07-17] MEDS: CLOTRIMAZOLE 1% CREAM 30 GM TUBE TP SCH ×2 (09:44→16:38)
--- NOTE | 2021-07-17 12:16 | NUR ---
MD ORDER TO REMOVE FC, PATIENT TOLERATED IT WELL, DENIES DISCOMFORT WITH 350ML OUTPUT IN THE URINE BAG. WILL CONTINUE TO MONITOR IF PATIENT VOIDS POST REMOVAL.
[2021-07-17 15:45] VITALS: BP 113/68
--- NOTE | 2021-07-17 18:27 | NUR ---
PATIENT REMAINED STABLE DURING THE SHIFT. DENIES PAIN AND DISCOMFORT. NOTED WITH URINE OUTPUT AFTER THE FC REMOVAL. ALL DUE MEDS GIVEN ORDERED. ALL NEEDS ATTENDED. KEPT CALL LIGHT WITHIN REACH. FREQUENT CHECKS DONE. SAFETY MEASURES MAINTAINED. ENDORSED TO THE NEXT SHIFT.
[2021-07-17 20:34] VITALS: BP 95/62
[2021-07-17] MEDS: TAMSULOSIN HCL 0.4 MG CAP.SR.24H PO SCH (20:56)
[2021-07-17] MEDS: ATORVASTATIN 10 MG TABLET PO SCH (20:56)
[2021-07-18] MEDS: PANTOPRAZOLE SODIUM 40 MG TABLET.DR PO SCH (06:14)
[2021-07-18 06:35] VITALS: BP 110/60
[2021-07-18 06:37] LABS: HEMATOCRIT 45.2 % (36.7-47.1); MEAN CORPUSCULAR HEMOGLOBIN 28.6 uug (23.8-33.4); PLATELET COUNT (AUTO) 198 K/uL (152-348)
[2021-07-18 06:54] LABS: CREATININE 0.9 mg/dL (0.6-1.3); MAGNESIUM 1.7 mg/dL (1.8-2.4); PHOSPHOROUS 3.4 mg/dL (2.5-4.9); POTASSIUM 4.2 mmol/L (3.5-5.1)
[2021-07-18 08:00] VITALS: BP 110/72
[2021-07-18] MEDS: FUROSEMIDE 20 MG TABLET PO SCH (08:30)
[2021-07-18] MEDS: CLOTRIMAZOLE 1% CREAM 30 GM TUBE TP SCH ×2 (08:30→16:32)
[2021-07-18] MEDS: LOSARTAN POTASSIUM 50 MG TABLET PO SCH (08:30)
[2021-07-18] MEDS: METOPROLOL SUCCINATE XL 50 MG TAB.SR.24H PO SCH (08:30)
[2021-07-18] MEDS: APIXABAN 2.5 MG TABLET PO SCH ×2 (08:32→21:28)
[2021-07-18] MEDS ORDERED: MAGNESIUM OXIDE 400 MG TABLET PO ONE (12:00)
[2021-07-18 16:00] VITALS: BP 117/61
--- NOTE | 2021-07-18 18:12 | NUR ---
PATIENT REMAINED STABLE DURING THE SHIFT. NO CONCERNS IDENTIFIED. KEPT SAFE. FREQUENT CHECKS DONE. ALL DUE MEDS GIVEN ORDERED. ALL NEEDS ATTENDED. CALL LIGHT WITHIN REACH. WILL ENDORSE TO THE NEXT SHIFT FOR CONTINUITY OF CARE.
[2021-07-18 20:00] VITALS: BP 122/64
[2021-07-18] MEDS: ATORVASTATIN 10 MG TABLET PO SCH (21:27)
[2021-07-18] MEDS: TAMSULOSIN HCL 0.4 MG CAP.SR.24H PO SCH (21:27)
[2021-07-19 04:00] VITALS: BP 146/82
[2021-07-19] MEDS: PANTOPRAZOLE SODIUM 40 MG TABLET.DR PO SCH (06:09)
[2021-07-19 07:35] VITALS: BP 127/75
[2021-07-19] MEDS: APIXABAN 2.5 MG TABLET PO SCH ×2 (09:00→20:54)
[2021-07-19] MEDS: CLOTRIMAZOLE 1% CREAM 30 GM TUBE TP SCH ×2 (09:00→17:27)
--- NOTE | 2021-07-19 09:45 | NUR ---
Received pt awake sitting on the chair, alert and oriented x3 forgetful at times. no respiratory distress noted.respiration even and unlabored. patient is able to make needs known. Denies pain and discomfort ambulating with FWW, to BR. Assisted with ADLs . Call light within reach. Will continue to monitor.
[2021-07-19] MEDS: LOSARTAN POTASSIUM 50 MG TABLET PO SCH (10:03)
[2021-07-19] MEDS: FUROSEMIDE 20 MG TABLET PO SCH (10:04)
[2021-07-19] MEDS: METOPROLOL SUCCINATE XL 50 MG TAB.SR.24H PO SCH (10:04)
[2021-07-19 15:10] VITALS: BP 115/44
[2021-07-19 15:12] VITALS: BP 116/60
--- NOTE | 2021-07-19 15:14 | NUR ---
INTERDISCIPLINARY TEAM CONFERENCE
--- NOTE | 2021-07-19 18:47 | NUR ---
PATIENT REMAINED STABLE DURING THE SHIFT. AMBULATED WITH PT AND A FWW ABLE TO USED THE BR BM X 1. KEPT SAFE. FREQUENT CHECKS DONE. ALL DUE MEDS GIVEN ORDERED. ALL NEEDS ATTENDED. CALL LIGHT WITHIN REACH. WILL ENDORSE TO THE NEXT SHIFT FOR CONTINUITY OF CARE.
[2021-07-19 20:00] VITALS: BP 140/80
[2021-07-19] MEDS: TAMSULOSIN HCL 0.4 MG CAP.SR.24H PO SCH (20:54)
[2021-07-19] MEDS: ATORVASTATIN 10 MG TABLET PO SCH (20:54)
[2021-07-20 04:00] VITALS: BP 115/53
[2021-07-20] MEDS: PANTOPRAZOLE SODIUM 40 MG TABLET.DR PO SCH (06:22)
[2021-07-20 08:00] VITALS: BP 108/67
[2021-07-20 09:00] VITALS: BP 108/67
[2021-07-20] MEDS: LOSARTAN POTASSIUM 50 MG TABLET PO SCH (09:00)
[2021-07-20] MEDS: METOPROLOL SUCCINATE XL 50 MG TAB.SR.24H PO SCH (09:00)
[2021-07-20] MEDS: APIXABAN 2.5 MG TABLET PO SCH (11:43)
[2021-07-20] MEDS: FUROSEMIDE 20 MG TABLET PO SCH (11:44)
[2021-07-20] MEDS: CLOTRIMAZOLE 1% CREAM 30 GM TUBE TP SCH (11:47)
--- NOTE | 2021-07-20 14:13 | NUR ---
D/C TO HOME WITH . INSTRUCTIONS GIVEN RE PICKING UP MEDS AT THE PHARMACY, DME AND HOME HEALTH CONTACT. VERBALIZED UNDERSTANDING PT AND . IV D/C INTACT.
== END 2021-07-20 14:05 | disposition home health service (06) | DRG 949 ==
PROVIDERS: ADMIT Physical Medicine & Rehabilitation Pain Medicine; ATTEND Physical Medicine & Rehabilitation Pain Medicine
PROC: 009U3ZZ Drainage of Spinal Canal, Percutaneous Approach (ICD-10-PCS; principal; 2021-07-10)
PROC: B01BZZZ Fluoroscopy of Spinal Cord (ICD-10-PCS; 2021-07-10)
DX: Z48.812 Encounter for surgical aftercare following surgery on the circulatory system (principal); I50.33 Acute on chronic diastolic (congestive) heart failure; N17.0 Acute kidney failure with tubular necrosis; I44.2 Atrioventricular block, complete; G91.2 (Idiopathic) normal pressure hydrocephalus; D68.59 Other primary thrombophilia; Z45.018 Encounter for adjustment and management of other part of cardiac pacemaker; I11.0 Hypertensive heart disease with heart failure; I48.0 Paroxysmal atrial fibrillation; E66.9 Obesity, unspecified; E83.42 Hypomagnesemia; G93.2 Benign intracranial hypertension; G93.89 Other specified disorders of brain; K76.89 Other specified diseases of liver; M62.81 Muscle weakness (generalized); R31.9 Hematuria, unspecified; R33.9 Retention of urine, unspecified; R97.20 Elevated prostate specific antigen [PSA]; I35.0 Nonrheumatic aortic (valve) stenosis; N40.1 Benign prostatic hyperplasia with lower urinary tract symptoms
CPT/HCPCS: 36415; 62270; 71045; 83615; 83735; 84100; 84153; 85025; 85610; 89051; 97161; A4663